=== PATIENT | male | born 1995 | race Caucasian/White ===

== ENCOUNTER 2019-11-27 17:58 | Emergency (ER) | payer OTHER, SELFPAY ==
--- NOTE | ~2019-11-27 | XR_ITS ---
EXAMINATION: XR hand RT min 3V INDICATION: Right hand pain TECHNIQUE: Three views of the right hand are obtained. COMPARISON: None available FINDINGS: There is no fracture, dislocation, or subluxation. The bones, soft tissues, and joint space s are normal. IMPRESSION: 1. No acute osseous abnormality. Reviewed, dictated and finalized at location A.
[2019-11-27 18:06] VITALS: BP 143/74; PULSE 78; RESP 16; TEMP 37.1; O2SAT 100
--- NOTE | 2019-11-27 18:55 | ED.UPPEXIN ---
HPI - Extremity Injury (Upper) General Chief Complaint: Extremity Injury, Upper Stated Complaint: right hand/wrist pain Time Seen by Provider: 11/27/19 18:45 Source: patient and RN notes reviewed Mode of arrival: ambulatory Limitations: no limitations History of Present Illness HPI narrative: Patient presents today complaining of an injury to the dorsum of his right hand. He punched a punching bag, that measures how hard you punched 5 days ago, causing an injury. Denies numbness or tingling in the hand or fingers. Denies any bruising. Reports swelling is improving since onset. He has tried no [id number] interventions prior to arrival. MD complaint: injury to: right and hand Related Data Home Medications Medication Instructions Recorded Confirmed No Home Medications 11/27/19 11/27/19 Allergies Allergy/AdvReac Type Severity Reaction Status Date / Time No Known Allergies Allergy Verified 11/27/19 18:24 Review of Systems Review of Systems: Narrative: CONSTITUTIONAL: Denies body aches, fever, chills, or sweats. EYES: Denies visual changes, redness, or discharge. ENT: Denies rhinorrhea, congestion, sore throat, or otalgia. CARDIOVASCULAR: Denies chest pain, palpitations, or edema. RESPIRATORY: Denies cough or dyspnea. GASTROINTESTINAL: Denies abdominal pain, nausea, vomiting, or diarrhea. GENITOURINARY: Denies dysuria or hematuria. SKIN: Denies rash, itching, or wounds. MUSCULOSKELETAL: Denies back pain, or myalgia. + Right hand injury NEUROLOGIC: Denies headache, numbness, tingling, or weakness. PSYCH: Denies depression or anxiety. PMFSH Comments At time of signature, I have reviewed and agree with nursing past medical, surgical, social and family history unless otherwise noted. Please see nursing chart for further information. There is no relevant family history pertinent to the presenting complaint Exam Narrative: Exam Narrative: GENERAL: Well-appearing, well-nourished, and in no acute distress. HEAD: Normocephalic, atraumatic. EYES: EOMI. No redness or drainage. Conjunctivae normal. ENT: Mucous membranes pink and moist. NECK: Normal AROM. CHEST: No respiratory distress. EXTREMITIES: Right hand: Tenderness to the right third metacarpal. Tenderness to the proximal metacarpal with palpation to the distal metacarpal. Mild edema to the proximal hand with faint ecchymosis. Distal sensation intact. Capillary refill normal. Radial pulse normal. No snuffbox tenderness. No tenderness to the wrist. SKIN: Warm, dry, no rash. Capillary refill normal. Normal skin turgor. NEURO: No focal deficits. Alert and oriented x3. Gait steady. PSYCH: Normal affect. No signs of depression or anxiety. Course Vital Signs Vital signs: Vital Signs Temperature 98.7 F 11/27/19 18:06 Pulse Rate 78 11/27/19 18:06 Respiratory Rate 16 11/27/19 18:06 Blood Pressure 143/74 H 11/27/19 18:06 Pulse Oximetry 100 11/27/19 18:06 Temperature 98.7 F 11/27/19 18:06 Pulse Rate 78 11/27/19 18:06 Respiratory Rate 16 11/27/19 18:06 Blood Pressure 143/74 H 11/27/19 18:06 Pulse Oximetry 100 11/27/19 18:06 Reviewed. Pt has been instructed to follow up with his PCP regarding his elevated blood pressure today. MDM - Extremity Injury (Upper) Differential Diagnosis Differential diagnosis: Likely sprain and strain of wrist, fracture of wrist, finger sprain, fracture of hand and other (Contusion, hand sprain) Imaging Data Radiologist's impression: ITS Impressions Hand X-Ray 11/27/19 18:32 IMPRESSION: 1. No acute osseous abnormality. Critical Care Time Critical Care Time Critical Care Time: No Discharge Plan Discharge Clinical Impression: Contusion of hand, right Qualifiers: Encounter type: initial encounter Qualified Code(s): S60.221A - Contusion of right hand, initial encounter Patient Disposition: Home, Self-Care Condition: Stable Instructions: Contusion in [place]
== END 2019-11-27 19:01 | disposition home or self-care (01) ==
PROVIDERS: Emergency Provider Nurse Practitioner
DX: S60.221A Contusion of right hand, initial encounter (principal); W22.8XXA Striking against or struck by other objects, initial encounter
CPT/HCPCS: 73130; 99213; G0463